=== PATIENT | male | born 1965 | race Caucasian/White ===

== ENCOUNTER 2020-09-05 06:52 | Outpatient (NON) | payer BC, SELFPAY ==
[2020-09-06 02:00] LABS: SARS-CoV-2 RNA PCR Negative
== END 2020-09-05 06:53 ==
LOC: ANHCOVIDDT 07:16
PROVIDERS: Visit Provider Specialist
DX: R68.89 Other general symptoms and signs (principal); Z20.828 Contact with and (suspected) exposure to other viral communicable diseases
CPT/HCPCS: 87635; C9803; U0003